=== PATIENT | female | born 1980 | race African-American/Black ===

== ENCOUNTER 2016-12-18 11:19 | Emergency (ER) | payer MEDICARE, MEDICAID ==
[2016-12-18] MEDS ORDERED: OXYCODONE-ACETAMINOPHEN 5-325 MG TABLET PO ONE ×2 (11:34→14:06)
--- NOTE | 2016-12-18 11:35 | ER Document Report ---
ED Medical Screen (RME) - General Chief Complaint: Vaginal Bleeding Stated Complaint: VAGINAL PAIN AND BLEEDING Notes: 36-year-old female patient complains of heavy vaginal bleeding started yesterday with severe cramps. She did not have a period for about 4 months. She was seen by [facility] and had endometrial biopsies done at the end of October, was put on Provera. She only took the Provera for 2 days, then had a period that lasted about 1-1/2 weeks. The bleeding began again yesterday. I have greeted and performed a rapid initial assessment of this patient. A comprehensive ED assessment and evaluation of the patient, analysis of test results and completion of the medical decision making process will be conducted by additional ED providers. TRAVEL OUTSIDE OF THE [place] IN LAST 30 DAYS: No - Related Data Allergies/Adverse Reactions: cefazolin [From Anc] Allergy (Verified 12/18/16 11:22) NSAIDS (Non-Steroidal Anti-Inflamma Allergy (Verified 12/18/16 11:22) Past Medical History Neurological Medical History: Reports: Hx Seizures Renal/ Medical History: Denies: Hx Peritoneal Dialysis Malignancy Medical History: Reports: Hx Cervical Cancer Musculoskeltal Medical History: Reports Hx Fibromyalgia Psychiatric Medical History: Reports: Hx Post Traumatic Stress Disorder Past Surgical History: Reports: Hx Appendectomy, Hx Gastric Bypass Surgery, Hx Herniorrhaphy, Hx Tonsillectomy, Hx Tubal Ligation - Immunizations Hx Diphtheria, Pertussis, Tetanus Vaccination: Yes Physical Exam - Vital signs Vitals: Temp Pulse Resp BP Pulse Ox 98.5 F 73 18 118/88 H 99 12/18/16 11:12/18/16 11:12/18/16 11:12/18/16 11:23 12/18/16 11:23 Course - Vital Signs Vital signs: Temp Pulse Resp BP Pulse Ox 98.5 F 73 18 118/88 H 99 12/18/16 11:23 12/18/16 11:23 12/18/16 11:12/18/16 11:23 12/18/16 11:23
[2016-12-18 11:54] LABS: ABSOLUTE BASOPHILS # (AUTO) 0.1 10^3/uL (0.0-0.2); ABSOLUTE EOSINOPHILS # (AUTO) 0.1 10^3/uL (0.0-0.6); ABSOLUTE LYMPHOCYTES (AUTO) 2.1 10^3/uL (0.5-4.7); ABSOLUTE MONOCYTES (AUTO) 0.9 10^3/uL (0.1-1.4); ABSOLUTE NEUT (AUTO) 6.7 10^3/uL (1.7-8.2); BASOPHILS % (AUTO) 0.6 % (0-2); EOSINOPHILS % (AUTO) 1.5 % (0-6); HEMATOCRIT 37.3 % (36.0-47.0); HEMOGLOBIN 12.5 g/dL (12.0-15.5); HGB HCT DIFFERENCE 0.2; LYMPHOCYTES % (AUTO) 20.9 % (13-45); MEAN CORPUSCULAR HEMOGLOBIN 27.8 pg (27.0-33.4); MEAN CORPUSCULAR HGB CONC 33.5 g/dL (32.0-36.0); MEAN CORPUSCULAR VOLUME 83 fl (80-97); MONOCYTES % (AUTO) 8.8 % (3-13); RED CELL DISTRIBUTION WIDTH 16.4 % (11.5-14.0); SEGMENTED NEUTROPHILS % (AUTO) 68.2 % (42-78); WHITE BLOOD COUNT 9.9 10^3/uL (4.0-10.5)
[2016-12-18 12:20] LABS: ALANINE AMINOTRANSFERASE 24 U/L (9-52); ALBUMIN 4.2 g/dL (3.5-5.0); ALKALINE PHOSPHATASE 98 U/L (38-126); ANION GAP 13 (5-19); ASPARTATE AMINO TRANSFERASE 14 U/L (14-36); BILIRUBIN,DIRECT 0.3 mg/dL (0.0-0.4); BILIRUBIN,TOTAL 0.5 mg/dL (0.2-1.3); BLOOD UREA NITROGEN 7 mg/dL (7-20); CALCIUM 9.3 mg/dL (8.4-10.2); CARBON DIOXIDE 23 mmol/L (22-30); CHLORIDE 108 mmol/L (98-107); CREATININE RESULT 0.69 mg/dL (0.52-1.25); GLUCOSE 93 mg/dL (75-110); POTASSIUM 4.5 mmol/L (3.6-5.0); SODIUM 143.6 mmol/L (137-145); TOTAL PROTEIN 7.6 g/dL (6.3-8.2)
--- NOTE | 2016-12-18 12:45 | ER Document Report ---
ED General - General Chief Complaint: Vaginal Bleeding Stated Complaint: VAGINAL PAIN AND BLEEDING Mode of Arrival: Ambulatory Information source: Patient Notes: 36 yr old female presents with complaints of pelvic pain with vaginal bleeding . Patient initially was being seen by Dr. Nathan because she did not have a menses between June to October, a colposcopy biopsy and ultrasound were performed, patient began having vaginal bleeding shortly thereafter in October. And then her period began again since yesterday heavy with cramping TRAVEL OUTSIDE OF THE [place] IN LAST 30 DAYS: No - HPI Onset: Yesterday Onset/Duration: Sudden Quality of pain: Cramping Severity: Moderate Pain Level: 1 Associated symptoms: Other Exacerbated by: Denies Relieved by: Denies Similar symptoms previously: Yes Recently seen / treated by doctor: Yes - Related Data Allergies/Adverse Reactions: cefazolin [From Anc] Allergy (Verified 12/18/16 11:22) NSAIDS (Non-Steroidal Anti-Inflamma Allergy (Verified 12/18/16 11:22) Past Medical History - Social History Smoking Status: Current Every Day Smoker Cigarette use (# per day): Yes Chew tobacco use (# tins/day): No Smoking Education Provided: No Frequency of alcohol use: None Drug Abuse: None Family History: Reviewed & Not Pertinent Patient has suicidal ideation: No Patient has homicidal ideation: No Neurological Medical History: Reports: Hx Seizures Renal/ Medical History: Denies: Hx Peritoneal Dialysis Malignancy Medical History: Reports: Hx Cervical Cancer Musculoskeltal Medical History: Reports Hx Fibromyalgia Psychiatric Medical History: Reports: Hx Post Traumatic Stress Disorder Past Surgical History: Reports: Hx Appendectomy, Hx Gastric Bypass Surgery, Hx Herniorrhaphy, Hx Tonsillectomy, Hx Tubal Ligation - Immunizations Hx Diphtheria, Pertussis, Tetanus Vaccination: Yes Review of Systems - Review of Systems Notes: REVIEW OF SYSTEMS: CONSTITUTIONAL : Denies fever, chills, or sweats. Denies recent illness. EENT: Denies eye, ear, throat, or mouth pain or symptoms. Denies nasal or sinus congestion or discharge. Denies throat, tongue, or mouth swelling or difficulty swallowing. CARDIOVASCULAR: Denies chest pain. Denies palpitations or racing or irregular heart beat. Denies ankle edema. RESPIRATORY: Denies cough, cold, or chest congestion. Denies shortness of breath, difficulty breathing, or wheezing. GASTROINTESTINAL: Denies abdominal pain or distention. Denies nausea, vomiting , or diarrhea. Denies blood in vomitus, stools, or per rectum. Denies black, tarry stools. Denies constipation. GENITOURINARY: Denies difficulty urinating, painful urination, burning, frequency, blood in urine, or discharge. FEMALE GENITOURINARY: Admits to vaginal bleeding pelvic cramping MUSCULOSKELETAL: Denies back or neck pain or stiffness. Denies joint pain or swelling. SKIN: Denies rash, lesions or sores. HEMATOLOGIC : Denies easy bruising or bleeding. LYMPHATIC: Denies swollen, enlarged glands. NEUROLOGICAL: Denies confusion or altered mental status. Denies passing out or loss of consciousness. Denies dizziness or lightheadedness. Denies headache. Denies weakness or paralysis or loss of use of either side. Denies problems with gait or speech. Denies sensory loss, numbness, or tingling. Denies seizures. PSYCHIATRIC: Denies anxiety or stress. Denies depression, suicidal ideation, or homicidal ideation. ALL OTHER SYSTEMS REVIEWED AND NEGATIVE. Dictation was performed using [employer] voice recognition software PHYSICAL EXAMINATION: GENERAL: Well-appearing, well-nourished and in no acute distress. HEAD: Atraumatic, normocephalic. EYES: Pupils equal round and reactive to light, extraocular movements intact, conjunctiva are normal. ENT: Nares patent, oropharynx clear without exudates. Moist mucous membranes. NECK: Normal range of motion, supple without lymphadenopathy LUNGS: Breath sounds clear to auscultation bilaterally and equal. No wheezes rales or rhonchi. HEART: Regular rate and rhythm without murmurs ABDOMEN: Soft, nontender, nondistended abdomen. No guarding, no rebound. No masses appreciated. Female : Pelvic examination performed with nurse in room, notes blood dried dark in vaginal vault no active bleeding Musculoskeletal: Normal range of motion, no pitting or edema. No cyanosis. NEUROLOGICAL: Cranial nerves grossly intact. Normal speech, normal gait. Normal sensory, motor exams PSYCH: Normal mood, normal affect. SKIN: Warm, Dry, normal turgor, no rashes or lesions noted. Physical Exam - Vital signs Vitals: Temp Pulse Resp BP Pulse Ox 98.5 F 73 18 118/88 H 99 12/18/16 11:23 12/18/16 11:23 12/18/16 11:23 12/18/16 11:23 12/18/16 11:23 Course - Re-evaluation Re-evalutation: 12/18/16 12:45 Ultrasound pending no life-threatening issues noted 12/18/16 15:03 Ultrasound is consistent with an ovarian cyst which patient is aware of, otherwise lab work notes no significant abnormality Patient to follow-up with her own [employer]ICER for further care 12/18/16 15:18 After performing a Medical Screening Examination, I estimate there is LOW risk for ACUTE APPENDICITIS, BOWEL OBSTRUCTION, ACUTE CHOLECYSTITIS, PERFORATED DIVERTICULITIS, INCARCERATED HERNIA, PANCREATITIS, PELVIC INFLAMMATORY DISEASE, PERFORATED ULCER, ECTOPIC , or TUBO-OVARIAN ABSCESS, thus I consider the discharge disposition reasonable. Also, there is no evidence or peritonitis , sepsis, or toxicity. I have reevaluated this patient multiple times and no significant life threatening changes are noted. The patient and I have discussed the diagnosis and risks, and we agree with discharging home with close follow-up with the understanding that symptoms and presentations can change. We also discussed returning to the Emergency Department immediately if new or worsening symptoms occur. We have discussed the symptoms which are most concerning (e.g., bloody stool, fever, changing or worsening pain, vomiting) that necessitate immediate return. - Vital Signs Vital signs: Temp Pulse Resp BP Pulse Ox 98.5 F 73 18 118/88 H 99 12/18/16 11:23 12/18/16 11:23 12/18/16 11:23 12/18/16 11:23 12/18/16 11:23 - Laboratory Result Diagrams: 12/18/16 11:41 12/18/16 11:41 Laboratory results interpreted by me: 12/18/16 12/18/16 11:41 11:41 RDW 16.4 H Chloride 108 H - Diagnostic Test Radiology reviewed: Image reviewed, Reports reviewed - Cyst noted report given to patient Discharge - Discharge Clinical Impression: Painful menstrual flow Ovarian cyst Qualifiers: Laterality: left Qualified Code(s): N83.202 - Unspecified ovarian cyst, left side Condition: Stable Disposition: HOME, SELF-CARE Instructions: Dysmenorrhea ([facility]) Prescriptions: Oxycodone HCl/Acetaminophen [Percocet 5-325 mg Tablet] 1 - 2 tab PO Q4H PRN #15 tablet PRN Reason: Referrals: DOROTHY ROGERS PA-C [Primary Care Provider] - Follow up as needed CULLEN NATHAN MD [ACTIVE STAFF] - Follow up as needed
[2016-12-18 15:40] VITALS: BP 104/58
== END 2016-12-18 15:38 | disposition home or self-care (01) ==
LOC: ER 11:19
DX: N83.202 Unspecified ovarian cyst, left side (principal); N93.8 Other specified abnormal uterine and vaginal bleeding; F17.210 Nicotine dependence, cigarettes, uncomplicated; F43.10 Post-traumatic stress disorder, unspecified; Z98.84 Bariatric surgery status
CPT/HCPCS: 99284; 36415; 84703; 85025; 80053; 76830; 93976; A9270

== ENCOUNTER 2017-01-05 17:38 | Emergency (ER) | payer MEDICARE, MEDICAID ==
[2017-01-05] MEDS ORDERED: LEVETIRACETAM 500 MG/NACL-ISO 100 ML IV ONE (17:54)
--- NOTE | 2017-01-05 17:57 | ER Document Report ---
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 EMS reports that the patient was post-ictal when they arrived. Patient had two additional 30 second Grand Mal seizures with post-ictal symptoms (no incontinence) each time. Patient was tachycardic with each episode and would return to a normal rate following the seizure. EMS reports that it took approximately 2 minutes of the patient to become alert after having each seizure. Patient had a third seizure in route to the ED where the patient's jaw clenched, eyes rolled back, became unresponsive, and her oxygen saturation dropped to the 80s. EMS gave the patient 2 mg Valium and 5 mg Versed. Patient was seen in the ED in March and May 2016 for seizure activity. Patient has a history of being non-compliant with seizure medication (Keppra and Gabapentin) . Patient has also stated in the past that she is concerned that her medication is not being absorbed as efficiently secondary to her gastric bypass surgery. When the patient became more alert she states that she hasn't taken her medication for 'a couple days'. Patient takes 1500 mg Keppra BID and an unknown dose of Gabapentin QID. A comprehensive HPI is unobtainable secondary to the patient's status. (JAKE ALLEN) - Related Data Allergies/Adverse Reactions: cefazolin [From Anc] Allergy (Verified 12/18/16 11:22) NSAIDS (Non-Steroidal Anti-Inflamma Allergy (Verified 12/18/16 11:22) Past Medical History - General Information source: [facility] Records - Social History Smoking Status: Unknown if Ever Smoked Family History: Reviewed & Not Pertinent Neurological Medical History: Reports: Hx Seizures Malignancy Medical History: Reports: Hx Cervical Cancer Musculoskeltal Medical History: Reports Hx Fibromyalgia Psychiatric Medical History: Reports: Hx Post Traumatic Stress Disorder Past Surgical History: Reports: Hx Appendectomy, Hx Gastric Bypass Surgery, Hx Herniorrhaphy, Hx Tonsillectomy, Hx Tubal Ligation - Immunizations Hx Diphtheria, Pertussis, Tetanus Vaccination: Yes <ALLENJAKE - Last Filed: 01/05/17 18:52> Review of Systems - Review of Systems -: Yes ROS unobtainable due to patient's medical condition - A comprehensive ROS is unobtainable secondary to the patient's status. Neurological/Psychological: Seizure <ALLENJAKE - Last Filed: 01/05/17 18:52> Physical Exam - General General appearance: Other - Patient was initially post-ictal and lethargic, but is alert and crying now. In distress: None - HEENT Head: Normocephalic, Atraumatic Eyes: Normal Extraocular movements intact: Yes Pupils: PERRL - pupils are not dilated Mucous membranes: Dry - Respiratory Respiratory status: No respiratory distress Breath sounds: Normal - Cardiovascular Rhythm: Regular Heart sounds: Normal auscultation - Abdominal Inspection: Morbidly Obese Distension: No distension Tenderness: Nontender - Back Back: Normal - Extremities General upper extremity: Normal inspection, Normal ROM General lower extremity: Normal inspection, Normal ROM - Neurological Neuro grossly intact: Yes Additional motor exam normals: Other - Patient is not hyperreflexive. - Psychological Associated symptoms: Normal affect, Normal mood - Skin Skin Temperature: Warm Skin Moisture: Dry Skin Color: Normal <JAKE ALLEN - Last Filed: 01/05/17 18:52> Course - Laboratory Result Diagrams: 01/05/17 18:00 01/05/17 18:00 <ALLENJAKE - Last Filed: 01/05/17 18:52> - Laboratory Result Diagrams: 01/05/17 18:00 01/05/17 18:00 - Diagnostic Test Radiology reviewed: Image reviewed, Reports reviewed - Chest x-ray does not show an acute process. There is some prominence in the right hilum. - EKG Interpretation by Ri EKG shows normal: Sinus rhythm, Joaquin, Intervals, ST-T Waves. abnormal: QRS Complexes - Borderline Q waves in inferior leads Rate: Normal - 88 Rhythm: NSR P Waves: LAE <EMELIA MOLINA - Last Filed: 01/05/17 19:43> - Re-evaluation Re-evalutation: 01/05/17 18:31 The patient did wake up, a admitted to not taking her seizure medication for several days. She states she is moving and could not find the medicine. Her other visits for seizures here were also from not taking her medication. She is now emotionally sobbing and crying and complaining of back pain. 01/05/17 19:39 The patient states that she now knows where her medications are. They're in a brown bag. She reports she actually located them earlier today but was waiting until she got back to her house to take them. She again states that she does know where the medication is, that she will be able to get it and take it when she gets home this evening. (EMELIA MOLINA) - Laboratory Laboratory results interpreted by me: 01/05/17 18:00 WBC 11.4 H RDW 16.0 H Absolute Neutrophils 8.3 H Discharge <JAKE ALLEN - Last Filed: 01/05/17 18:52> <EMELIA MOLINA - Last Filed: 01/05/17 19:43> - Discharge Clinical Impression: Seizures, Noncompliance with medications Condition: Stable Disposition: HOME, SELF-CARE Additional Instructions: Seizure, Known Epileptic: You have had a seizure. Seizures may "break through" in an epileptic due to stress of infection or injury, a change in blood chemistry, or drug and alcohol use. Another common cause is failure to take medication as prescribed. Your doctor has evaluated your situation for the likely cause of this seizure. It is important that you follow his advice concerning any medication changes and follow-up care. Further testing of anti-seizure medication levels in your blood may be necessary. If you have a delivery driver/customer service's license, it's important that you DO NOT DRIVE until given permission by your physician. This seizure must be reported to the delivery driver/customer service 's license bureau. Call the doctor or return if seizures recur, or if new or unusual symptoms arise -- such as severe headache, confusion, excessive sleepiness, local weakness or numbness, neck stiffness, or fever. TAKE YOUR MEDICATION WHEN YOU RETURN HOME. DO NOT SKIP DOSES OF YOUR MEDICATIONS AGAIN. FOLLOW UP WITH DR. HERNANDEZ. RETURN TO THE EMERGENCY ROOM IF ANY NEW OR WORSENING SYMPTOMS. Referrals: DOROTHY ROGERS PA-C [Primary Care Provider] - Follow up as needed MICHEL HERNANDEZ MD [ACTIVE STAFF] - Follow up as needed Scribe Attestation: 01/05/17 19:42 I personally performed the services described in the documentation, reviewed and edited the documentation which was dictated to the scribe in my presence, and it accurately records my words and actions. (MEELIA MOLINA) Scribe Documentation - Scribe Written by Scribe:: Reema White, 01/05/2017 1803 acting as scribe for :: Sailaja <JAKE ALLEN - Last Filed: 01/05/17 18:52>
[2017-01-05 18:12] LABS: ABSOLUTE BASOPHILS # (AUTO) 0.1 10^3/uL (0.0-0.2); ABSOLUTE EOSINOPHILS # (AUTO) 0.1 10^3/uL (0.0-0.6); ABSOLUTE LYMPHOCYTES (AUTO) 2.2 10^3/uL (0.5-4.7); ABSOLUTE MONOCYTES (AUTO) 0.9 10^3/uL (0.1-1.4); ABSOLUTE NEUT (AUTO) 8.3 10^3/uL (1.7-8.2); BASOPHILS % (AUTO) 0.5 % (0-2); EOSINOPHILS % (AUTO) 0.7 % (0-6); HEMATOCRIT 37.5 % (36.0-47.0); HEMOGLOBIN 12.1 g/dL (12.0-15.5); HGB HCT DIFFERENCE -1.2; LYMPHOCYTES % (AUTO) 18.9 % (13-45); MEAN CORPUSCULAR HEMOGLOBIN 27.2 pg (27.0-33.4); MEAN CORPUSCULAR HGB CONC 32.4 g/dL (32.0-36.0); MEAN CORPUSCULAR VOLUME 84 fl (80-97); MONOCYTES % (AUTO) 7.5 % (3-13); RED BLOOD COUNT 4.47 10^6/uL (3.72-5.28); SEGMENTED NEUTROPHILS % (AUTO) 72.4 % (42-78); WHITE BLOOD COUNT 11.4 10^3/uL (4.0-10.5)
[2017-01-05] MEDS ORDERED: ETOMIDATE INJ/PF 20 MG/10 ML SDV IV ONE (18:25)
[2017-01-05 18:30] LABS: ALANINE AMINOTRANSFERASE 22 U/L (9-52); ALBUMIN 4.2 g/dL (3.5-5.0); ALKALINE PHOSPHATASE 88 U/L (38-126); ANION GAP 12 (5-19); ASPARTATE AMINO TRANSFERASE 17 U/L (14-36); BILIRUBIN,DIRECT 0.4 mg/dL (0.0-0.4); BILIRUBIN,TOTAL 0.4 mg/dL (0.2-1.3); BLOOD UREA NITROGEN 8 mg/dL (7-20); CALCIUM 9.6 mg/dL (8.4-10.2); CARBON DIOXIDE 22 mmol/L (22-30); CHLORIDE 106 mmol/L (98-107); CREATININE RESULT 0.81 mg/dL (0.52-1.25); GLUCOSE 89 mg/dL (75-110); POTASSIUM 4.4 mmol/L (3.6-5.0); SODIUM 140.3 mmol/L (137-145); TOTAL PROTEIN 7.7 g/dL (6.3-8.2)
[2017-01-05] MEDS ORDERED: GABAPENTIN 300 MG CAPSULE PO ONE (18:32)
[2017-01-05] MEDS ORDERED: OXYCODONE-ACETAMINOPHEN 5-325 MG TABLET PO ONE (18:33)
[2017-01-05 18:44] LABS: ADD ON TESTING BLD IN LAB ACKNOWLEDGE
[2017-01-05 19:11] LABS: CREATINE KINASE 118 U/L (30-135)
[2017-01-05 20:48] VITALS: BP 102/69
== END 2017-01-05 19:55 | disposition home or self-care (01) ==
LOC: ER 17:38
DX: G40.909 Epilepsy, unspecified, not intractable, without status epilepticus (principal); Z91.14 Patient's other noncompliance with medication regimen; Z85.41 Personal history of malignant neoplasm of cervix uteri; Z98.84 Bariatric surgery status; Z98.51 Tubal ligation status
CPT/HCPCS: 99284; 51702; 36415; 82550; 85025; 80053; 71010; A9270 ×2

== ENCOUNTER 2017-05-11 07:50 | Emergency (ER) | payer MEDICARE, MEDICAID ==
[2017-05-11] MEDS ORDERED: LIDOCAINE 1% INJ-PF (10 MG/ML) 30 ML SDV INJ ONE (08:09)
[2017-05-11] MEDS ORDERED: HYDROCODONE/ACETAMINOPHEN 10-325 MG TABLET PO ONE (08:10)
[2017-05-11] MEDS ORDERED: DIPH/PERTUSS(ACELL)/TETANUS VAC/PF 0.5 ML SYR (>=10YO) IM ONE (08:10)
--- NOTE | 2017-05-11 08:16 | ER Document Report ---
ED Extremity Problem, Lower <TEAGAN CERRATO - Last Filed: 05/11/17 09:47> - General TRAVEL OUTSIDE OF THE [place] IN LAST 30 DAYS: No <AMANDAKISHORE BEVERLY - Last Filed: 05/11/17 10:58> - General Chief Complaint: Ankle Injury Stated Complaint: RIGHT ANKLE PAIN Time Seen by Provider: 05/11/17 08:09 - HPI Notes: This is a 36-year-old female who presents with multiple injuries after sustaining a fall shortly prior to arrival in her kitchen. The area of significant pain appears to be her right ankle. She states it is severe and worse with movement. She also has a laceration to the inside and outside of her lower lip region. She denies any other significant injury otherwise. Specifically no chest pain abdominal pain. Though she does have a seizure history, no seizure was noted. This was based on a simple mechanical fall as she slipped. She does state she has some mild generalized pain that is more consistent with her fibromyalgia. Tetanus shot is not up-to-date in the last 5 years. Denies any head injury loss of consciousness new neck or back discomfort or pelvic pain. (KISHORE PATEL) - Related Data Allergies/Adverse Reactions: cefazolin [From Anc] Allergy (Verified 05/11/17 07:59) NSAIDS (Non-Steroidal Anti-Inflamma Allergy (Verified 05/11/17 07:59) Past Medical History - Social History Smoking Status: Current Every Day Smoker Frequency of alcohol use: None Drug Abuse: Prescription drugs Family History: Reviewed & Not Pertinent Neurological Medical History: Reports: Hx Seizures Renal/ Medical History: Denies: Hx Peritoneal Dialysis Malignancy Medical History: Reports: Hx Cervical Cancer Musculoskeltal Medical History: Reports Hx Fibromyalgia Psychiatric Medical History: Reports: Hx Post Traumatic Stress Disorder Past Surgical History: Reports: Hx Appendectomy, Hx Gastric Bypass Surgery, Hx Herniorrhaphy, Hx Tonsillectomy, Hx Tubal Ligation - Immunizations Hx Diphtheria, Pertussis, Tetanus Vaccination: Yes <KISHORE PATEL - Last Filed: 05/11/17 10:58> Review of Systems - Review of Systems -: Yes All other systems reviewed and negative <KISHORE PATEL - Last Filed: 05/11/17 10:58> Physical Exam <TEAGAN CERRATO - Last Filed: 05/11/17 09:47> <KISHORE PATEL - Last Filed: 05/11/17 10:58> - Vital signs Vitals: Temp Pulse Resp BP Pulse Ox 98.5 F 98 18 125/102 H 95 05/11/17 07:56 05/11/17 07:56 05/11/17 07:56 05/11/17 07:56 05/11/17 07:56 - Notes Notes: GENERAL: VS as per nursing doc. Well-appearing, well-nourished and in no acute distress. C-Collar in place. Spine board in place. HEAD: Atraumatic, normocephalic. No cranial tenderness EYES: Pupils equal round and reactive to light, extraocular movements intact, sclera anicteric, no conjunctival injection or discharge. No evidence of trauma. ENT: Nares patent without bleeding. There is a stellate laceration to the mucosal surface of the lower lip. It does not involve the lip itself and is totally mucosal based. It is difficult to note if this is clearly through and through as there is a 2 cm laceration on the external surface of the lower lip though it does not cross the vermilion border or the lip itself. No evidence of facial instablitily. The mandible itself does not appear to be tender and I note no instability. No evidence of newly fractured or loose teeth. NECK: Normal range of motion without pain elicited. No deformity. LUNGS: Breath sounds clear to auscultation bilaterally and equal. No wheezes rales or rhonchi. No chest wall tenderness or deformity. HEART: Regular rate and rhythm without murmurs. Normal S1, S2. Peripheral pulses equal. ABDOMEN: Soft, non-tender. BACK: No CVA tenderness. No spine tenderness. No evidence of trauma EXTREMITIES: Normal range of motion without pain elicited except for the right ankle. There is moderate amount of edema with tenderness diffusely more so over the lateral malleolus. Basically anywhere from the proximal tib-fib region distally to the toes she has exquisite tenderness. Ankle is the only area that appears to have gross deformity. Neurovascularly intact distally. NEUROLOGICAL: GCS 15. Cranial nerves intact. Normal speech. Normal sensory and motor exams. No gross cerebellar abnormalities. PSYCH: Normal mood, normal affect. SKIN: Warm, dry. Lacerations as noted above, there are contusions that are scattered mostly noted of the right upper extremity. There is no associated bony tenderness. (AMANDAKISHORE) Course <TEAGAN CERRATO - Last Filed: 05/11/17 09:47> - Diagnostic Test Radiology reviewed: Image reviewed, Reports reviewed - Patient has suggestions of an unstable ankle with some mild mortise widening as well as a transverse fracture of the distal fibula. <AMANDA,JOHN F - Last Filed: 05/11/17 10:58> - Re-evaluation Re-evalutation: 05/11/17 09:[address] Ray. Patient will be placed in a posterior and stirrup splint. She will remain nonweightbearing and call to arrange follow-up for probable surgical repair. 05/11/17 10:12 The posterior and stirrup splint OCL was fabricated by BRUNO Cerna. Follow-up showed good neurovascular status and good placement. Patient was again instructed on splint use and mandatory follow-up. 05/11/17 10:57 Patient told me on initial evaluation when directly asked if she was on any pain medications she stated no. She later informed the nurse that she was in through a pain clinic. I reviewed her record in the [facility] medical database. She is receiving 90 Percocet a day. She was very upset I would not prescribe her further narcotics specifically [place], and instructed her she would need further pain management through her pain management clinic. She cannot take NSAIDs. I do not feel there are much other options. (AMANDAKISHORE) - Vital Signs Vital signs: Temp Pulse Resp BP Pulse Ox 98.9 F 92 16 128/86 H 96 05/11/17 10:41 05/11/17 10:41 05/11/17 10:41 05/11/17 10:41 05/11/17 10:41 Procedures - Laceration/Wound Repair Face Time completed: 09:47 Wound length (cm): 1 Wound's Depth, Shape: Irregular - through to buccal mucosa of the lower lip Laceration pre-procedure: Sterile drapes applied, Other - surgiscrub Anesthetic type: 1% Lidocaine Volume Anesthetic (mLs): 4 Wound explored: Clean Irrigated w/ Saline (mLs): 80 - no lower teeth (dentures) no upper teeth chips Wound Repaired With: Sutures - #3 chromic buccal mucosa loosely approximated, # 3 5-0 prolene external distal to lower lip Suture Size/Type: 5:0, Prolene, Other - chromic Number of Sutures: 6 - see above Layer Closure?: No Post-procedure NV exam normal: Yes Complications: No <TEAGAN CERRATO - Last Filed: 05/11/17 09:47> Discharge <SAQIBTEAGAN - Last Filed: 05/11/17 09:47> <KISHORE PATEL - Last Filed: 05/11/17 10:58> - Discharge Clinical Impression: Laceration of face, Closed right ankle fracture Condition: Good Disposition: HOME, SELF-CARE Instructions: Ankle Stirrup Splint ([facility]), Use of Crutches ([facility]), Ice & Elevation ([facility]), Oral Narcotic Medication ([facility]), Tetanus Immunization Given ([facility] ) Additional Instructions: It is extremely important to ice and elevate your ankle to decrease the swelling. Do not let your foot dangle or your ankle will become increasingly painful and more swollen. Keep it above heart level. Use crutches or a walker to remain nonweightbearing on the right ankle. Use caution with the pain medication as it will make you sleepy. Do not take extra Tylenol. Contact Dr. Ray today to arrange follow-up for this week. His number is a attached as noted. Rinse your mouth with warm salt water rinses to try to keep the area clean of the inside laceration. Avoid nuts or similar particles that could get imbedded. Note that there will be some white material forming on the inside of the mouth. Take the antibiotics as directed. The outside sutures will need to be removed in approximately 5 days. The inside sutures will dissolve on their own. Because you are followed by pain management, you will have to have them provide your care and pain managemen in excess of your already prescribed Oxcodone. Make sure you contact them today. Prescriptions: Promethazine HCl [Phenergan 25 mg Tablet] 1 tab PO Q4HP PRN #15 tablet PRN Reason: Amoxicillin 1 tab PO TID #15 tab Referrals: TAL HERNANDEZ MD [ACTIVE STAFF] - Follow up as needed (It is very important to call today to arrange follow-up for this week.)
--- NOTE | 2017-05-11 09:02 | RADIOLOGY REPORT (SQ) ---
EXAM DESCRIPTION: FOOT RIGHT COMPLETE COMPLETED DATE/TIME: 05/11/2017 8:45 am REASON FOR STUDY: Trauma with pain COMPARISON: Right tibia and fibula two views NUMBER OF VIEWS: Two-views. TECHNIQUE: AP, lateral radiographic images acquired of the right foot. LIMITATIONS: None. FINDINGS: MINERALIZATION: Normal. BONES: Acute fracture, right distal fibular metaphysis at the level of the ankle mortise. This is ma rked with an arrow. Bones of the right foot are intact. JOINTS: Ankle joint effusions. SOFT TISSUES: Lateral soft tissue swelling. No foreign body. OTHER: No other significant finding. IMPRESSION: Transverse fracture right distal fibular metaphysis with overlying soft tissue swelling TECHNICAL DOCUMENTATION: JOB ID: [id number] [employer]- All Rights Reserved
--- NOTE | 2017-05-11 09:04 | RADIOLOGY REPORT (SQ) ---
EXAM DESCRIPTION: TIBIA FIBULA RIGHT COMPLETED DATE/TIME: 05/11/2017 8:45 am REASON FOR STUDY: Trauma with pain COMPARISON: Right foot two views NUMBER OF VIEWS: Two views. TECHNIQUE: Two radiographic images acquired of the right tibia and fibula to include the knee and an kle in at least one projection. LIMITATIONS: None. FINDINGS: MINERALIZATION: Normal. BONES: Acute transverse fracture right distal fibular metaphysis with slight lateral displacement of the fracture fragment. SOFT TISSUES: Lateral soft tissue swelling OTHER: There is an ankle joint effusion, slight lateral subluxation of the talus with respect to the tibia, and mild widening of the medial ankle mortise. IMPRESSION: Limited study of the ankle. However, there is a transverse fracture of the distal right fibular metaphysis at the level of the ankle mortise, and widening of the medial ankle mortise. Ank le joint effusion is present. Remainder of the tibia and fibula two views is otherwise unremarkable TECHNICAL DOCUMENTATION: JOB ID: [id number] [employer]- All Rights Reserved
[2017-05-11] MEDS ORDERED: OXYCODONE-ACETAMINOPHEN 5-325 MG TABLET PO ONE (10:12)
[2017-05-11 10:44] VITALS: BP 128/86
== END 2017-05-11 10:45 | disposition home or self-care (01) ==
LOC: ER 07:50
PROC: 0CQ1XZZ Repair Lower Lip, External Approach (ICD-10-PCS; principal; 2017-05-11)
DX: S82.401A Unspecified fracture of shaft of right fibula, initial encounter for closed fracture (principal); S01.511A Laceration without foreign body of lip, initial encounter; W01.0XXA Fall on same level from slipping, tripping and stumbling without subsequent striking against object, initial encounter; Y92.000 Kitchen of unspecified non-institutional (private) residence as the place of occurrence of the external cause; F17.200 Nicotine dependence, unspecified, uncomplicated; F43.10 Post-traumatic stress disorder, unspecified; Z85.41 Personal history of malignant neoplasm of cervix uteri; Z98.84 Bariatric surgery status; Z98.51 Tubal ligation status; Z23 Encounter for immunization
CPT/HCPCS: 99283; 90471; 73630; 73590; 90715; 12011; J3490; A9270 ×2

== ENCOUNTER 2017-05-19 09:15 | Day surgery (SDC) | payer MEDICARE, MEDICAID ==
[2017-05-18 10:51] LABS: ABSOLUTE BASOPHILS # (AUTO) 0.1 10^3/uL (0.0-0.2); ABSOLUTE EOSINOPHILS # (AUTO) 0.2 10^3/uL (0.0-0.6); ABSOLUTE LYMPHOCYTES (AUTO) 1.8 10^3/uL (0.5-4.7); ABSOLUTE MONOCYTES (AUTO) 0.9 10^3/uL (0.1-1.4); ABSOLUTE NEUT (AUTO) 9.1 10^3/uL (1.7-8.2); EOSINOPHILS % (AUTO) 1.8 % (0-6); HEMATOCRIT 36.2 % (36.0-47.0); HGB HCT DIFFERENCE -0.2; LYMPHOCYTES % (AUTO) 14.9 % (13-45); MEAN CORPUSCULAR HEMOGLOBIN 27.5 pg (27.0-33.4); MEAN CORPUSCULAR VOLUME 83 fl (80-97); MONOCYTES % (AUTO) 7.1 % (3-13); RED BLOOD COUNT 4.35 10^6/uL (3.72-5.28); RED CELL DISTRIBUTION WIDTH 14.9 % (11.5-14.0); SEGMENTED NEUTROPHILS % (AUTO) 75.2 % (42-78); WHITE BLOOD COUNT 12.1 10^3/uL (4.0-10.5)
[2017-05-18 11:08] LABS: ANION GAP 11 (5-19); BLOOD UREA NITROGEN 10 mg/dL (7-20); CALCIUM 9.2 mg/dL (8.4-10.2); CARBON DIOXIDE 22 mmol/L (22-30); CHLORIDE 107 mmol/L (98-107); CREATININE RESULT 0.63 mg/dL (0.52-1.25); GLUCOSE 93 mg/dL (75-110); POTASSIUM 4.9 mmol/L (3.6-5.0); SODIUM 140.2 mmol/L (137-145)
--- NOTE | 2017-05-18 12:06 | RADIOLOGY REPORT (SQ) ---
EXAM DESCRIPTION: CHEST PA/LATERAL COMPLETED DATE/TIME: 05/18/2017 11:32 am REASON FOR STUDY: PRE OP COMPARISON: 01/05/2017. EXAM PARAMETERS: NUMBER OF VIEWS: two views TECHNIQUE: Digital Frontal and Lateral radiographic views of the chest acquired. RADIATION DOSE: NA LIMITATIONS: none FINDINGS: LUNGS AND PLEURA: No opacities, masses or pneumothorax. No pleural effusion. MEDIASTINUM AND HILAR STRUCTURES: No masses or contour abnormalities. HEART AND VASCULAR STRUCTURES: Heart normal size. No evidence for failure. BONES: No acute findings. HARDWARE: None in the chest. OTHER: No other significant finding. IMPRESSION: NO SIGNIFICANT RADIOGRAPHIC FINDING IN THE CHEST. TECHNICAL DOCUMENTATION: JOB ID: [id number] [employer]- All Rights Reserved
--- NOTE | 2017-05-18 12:53 | EKG REPORT ---
SEVERITY:- NORMAL ECG - SINUS RHYTHM : Confirmed by: Rogers Aceves MD 18-May-2017 12:52:15
[~2017-05-19 09:15] MED LIST: LACTATED RINGERS 1000 ML IV PRN; LIDOCAINE 0.5% INJ-PF (5 MG/ML) 50 ML SDV SUBCUT PRN; SUCCINYLCHOLINE CHLORIDE INJ 200 MG/10 ML VIAL ONE; VANCOMYCIN HCL 1,500 MG in DEXTROSE 5%-WATER 250 ML IV PRN
[2017-05-19 10:03] LABS: APPEARANCE,URINE CLEAR; BILIRUBIN,URINE NEGATIVE (NEGATIVE); GLUCOSE, URINE NEGATIVE (NEGATIVE); KETONES,URINE NEGATIVE (NEGATIVE); LEUKOCYTE ESTERASE,URINE SMALL (NEGATIVE); NITRITE,URINE NEGATIVE (NEGATIVE); PROTEIN,URINE NEGATIVE (NEGATIVE); URINE SPECIFIC GRAVITY 1.015; UROBILINOGEN,URINE NEGATIVE mg/dL (<2.0)
[2017-05-19] MEDS ORDERED: HYDROMORPHONE HCL INJ/PF 2 MG/ML AMPULE ONE (10:27)
[2017-05-19] MEDS ORDERED: FENTANYL CITRATE INJ/PF 100 MCG/2 ML AMPUL ONE (11:07)
[2017-05-19] MEDS ORDERED: ACETAMINOPHEN 100 ML IV ONE (11:07)
[2017-05-19] MEDS ORDERED: PROPOFOL INJ 200 MG/20 ML VIAL IV ONE (11:07)
[2017-05-19] MEDS ORDERED: ONDANSETRON HCL INJ/PF 4 MG/2 ML SDV ONE (11:07)
[2017-05-19] MEDS ORDERED: DEXAMETHASONE SOD PHOSPHATE INJ 4 MG/1 ML VIAL ONE (11:07)
[2017-05-19] MEDS ORDERED: MIDAZOLAM 2 MG/2 ML INJ ONE (11:07)
[2017-05-19] MEDS ORDERED: MORPHINE SULFATE 10 MG/ML INJ ONE (11:07)
[2017-05-19] MEDS ORDERED: BUPIVACAINE HCL 0.25 % INJ/PF (2.5 MG/1 ML) 30 ML VIAL ONE (12:23)
[2017-05-19] MEDS ORDERED: MEPERIDINE HCL/PF INJ 25 MG/1 ML DISP.SYRIN IV PRN (12:25)
[2017-05-19] MEDS ORDERED: FENTANYL CITRATE INJ/PF 100 MCG/2 ML AMPUL IV PRN ×3 (12:25)
[2017-05-19] MEDS ORDERED: MORPHINE SULFATE 10 MG/ML INJ IV PRN (12:25)
[2017-05-19] MEDS ORDERED: PROMETHAZINE HCL INJ 25 MG/1 ML VIAL IV PRN ×2 (12:25)
[2017-05-19] MEDS ORDERED: OXYCODONE-ACETAMINOPHEN 5-325 MG TABLET PO PRN ×2 (12:25)
[2017-05-19] MEDS ORDERED: DIPHENHYDRAMINE HCL 50 MG/ML VIAL IV PRN (12:25)
--- NOTE | 2017-05-19 13:22 | Operative Report ---
Operative Report DATE OF SURGERY: 05/19/17 PREOPERATIVE DIAGNOSIS: Displaced right lateral malleolus ankle fracture POSTOPERATIVE DIAGNOSIS: Same OPERATION: ORIF of right lateral malleolus ankle fracture SURGEON: TAL BECKER ANESTHESIA: GA TISSUE REMOVED OR ALTERED: None COMPLICATIONS: None ESTIMATED BLOOD LOSS: 30 mL INTRAOPERATIVE FINDINGS: As above PROCEDURE: Patient received 2 g of Ancef in the preoperative holding area. Patient was now taken to the operating room and induced and intubated in supine position. Once the tube was secured a thigh tourniquet was applied to right extremity. Extremity was prepped and draped in a normal surgical fashion. Timeout was done identifying the right ankle as the correct site. Attempted to inflate the tourniquet and was unsuccessful due to mechanical problems with the actual tourniquet therefore no tourniquet was used. Electrocautery was used to obtain hemostasis. A standard lateral incision was done straight over the distal fibula. Incision was taken down to the bone and then periosteal elevator was used to expose the fracture site and elevate the periosteum at the fracture site. Both fragments were visualized and Jah Contreras was used to retract the tissue. I was able to then reduce the fracture with reduction clamps. C-arm pictures were taken to confirm our reduction. I then applied the appropriate locking plate and make sure was in a proper alignment and with C-arm. Once I was satisfied with the proximal distal situation and the AP lateral position of the plate I proceeded then to use the drill guide and drill to drill the proximal hole in the plate in the distal fragment. I measured and placed a proper length screw. I repeated this with the distal hole in the plate to secure the proximal fragment. Reduction clamp was removed and the fracture stayed reduced. AP and lateral x-rays confirm there is no change in alignment. I then proceeded to fill in the remaining holes I drilling and using C-arm and measuring guide to applied appropriate screws. Once I was satisfied with my lateral fixation at this point I proceeded to close my lateral wound with 0 Vicryl and 3-0 Vicryl and claudette for skin. Tourniquet was let down and the dressing was applied. Xeroform 4 x 4 sterile dressing followed by Sof-Rol was applied. A posterior Ortho-Glass splint with a Ortho-Glass stirrup splint was applied and overwrapped with an Clemente bandage. I held the foot in neutral and waiting until the splint hardened. At this point drapes were removed and patient was extubated and sent to PACU in stable condition.
[2017-05-19] MEDS: MORPHINE SULFATE 10 MG/ML INJ ONE ×4 (13:26→13:39)
[2017-05-19] MEDS ORDERED: HYDROCODONE/ACETAMINOPHEN 5-325 MG TABLET PO PRN (13:26)
--- NOTE | 2017-05-19 13:26 | PDOC DISCHARGE SUMMARY ---
Discharge Summary (SDC) - Discharge Final Diagnosis: ORIF of right lateral malleolus Date of Surgery: 05/19/17 Discharge Date: 05/19/17 Condition: Good Treatment or Instructions: Keep splint dry clean and intact. Nonweightbearing with crutches. Follow-up in the office in 10-14 days. Prescriptions: Hydrocodone/Acetaminophen [[place] 5-325 mg Tablet] 1 - 2 tab PO Q6HP PRN #60 tablet PRN Reason: Referrals: DOROTHY ROGERS PA-C [Primary Care Provider] - Respiratory Treatments at Home: Deep Breathing/Coughing Discharge Activity: Keep Legs Elevated, No Lifting/Push/Pulling Home Care Assistance: None Needed Adaptive Devices on Discharge: Axillary Crutches Report the Following to Your Physician Immediately: Shortness of Breath, Vomiting, Fever over 101 Degrees, Unusual Bleeding, Redness, Swelling, Warmth, Increased Soreness, Drainage-Yellow, Drainage-Cannon, Drainage-Green, Drainage- Foul Smelling
--- NOTE | 2017-05-19 13:35 | RADIOLOGY REPORT (SQ) ---
EXAM DESCRIPTION: ANKLE RIGHT AP/LATERAL COMPLETED DATE/TIME: 05/19/2017 1:06 pm REASON FOR STUDY: ORIF RIGHT LATERAL MALLEOLUS FX ASSISTED W/ FLUORO IN OR S82.61XA DISP FX OF LATE RAL MALLEOLUS OF RIGHT FIBULA, INIT COMPARISON: None. FLUOROSCOPY TIME: 0.3 minute 6 images saved to PACS. TECHNIQUE: Intra-operative images acquired during surgical procedure to evaluate progress. NUMBER OF IMAGES: 6 LIMITATIONS: None. FINDINGS: Fluoroscopic images were obtained during internal fixation of the right fibula. Orthopedi c hardware is identified. Please refer to the surgeon's operative report for additional information. IMPRESSION: IMAGE(S) OBTAINED DURING PROCEDURE. COMMENT: Quality ID [id number]: Final reports for procedures using fluoroscopy that document radiation exp osure indices, or exposure time and number of fluorographic images (if radiation exposure indices are not available) Please consult full operative report of the attending physician for description of the procedure. TECHNICAL DOCUMENTATION: JOB ID: [id number] [employer]- All Rights Reserved
--- NOTE | 2017-05-19 14:42 | RADIOLOGY REPORT (SQ) ---
EXAM DESCRIPTION: NO CHG FLUORO COMPLETED DATE/TIME: 05/19/2017 1:06 pm REASON FOR STUDY: ORIF RIGHT LATERAL MALLEOLUS FX ASSISTED W/ FLUORO IN OR COMPARISON: Right tibia and fibula films 05/11/2017 Intraoperative imaging 05/19/2017 FLUOROSCOPY TIME: 0.3 minutes 6 Images saved to PACS LIMITATIONS: None. PROCEDURE: Intra procedural imaging and fluoro during ORIF right ankle FINDINGS: Intraoperative films. IMPRESSION: Intraoperative films and fluoroscopy COMMENT: PQRS [id number]: Fluoroscopy time of the procedure is documented in the report. TECHNICAL DOCUMENTATION: JOB ID: [id number] [employer]- All Rights Reserved
[2017-05-19 15:45] VITALS: BP 122/86
== END 2017-05-19 15:30 | disposition home or self-care (01) ==
LOC: OROUT 09:15
PROVIDERS: ATTEND Orthopaedic Surgery
PROC: 0QSJ04Z Reposition Right Fibula with Internal Fixation Device, Open Approach (ICD-10-PCS; principal; 2017-05-19 11:30)
DX: S82.61XA Displaced fracture of lateral malleolus of right fibula, initial encounter for closed fracture (principal); W01.0XXA Fall on same level from slipping, tripping and stumbling without subsequent striking against object, initial encounter; K21.9 Gastro-esophageal reflux disease without esophagitis; F17.210 Nicotine dependence, cigarettes, uncomplicated; M25.571 Pain in right ankle and joints of right foot; M79.7 Fibromyalgia; G40.909 Epilepsy, unspecified, not intractable, without status epilepticus; F31.9 Bipolar disorder, unspecified; E66.9 Obesity, unspecified; Z79.899 Other long term (current) drug therapy; Z79.51 Long term (current) use of inhaled steroids; Z98.84 Bariatric surgery status; Z68.43 Body mass index [BMI] 50.0-59.9, adult
CPT/HCPCS: 93005; 36415; 85025; 81025; 80048; 81001; 73600; 71020; 93010; 27792; C1713 ×5; J2250; J1100; J3010; J2270; J1170; J0330; J2405; J7060; J2704; J3370; J0131; A9270; 01480

== ENCOUNTER 2017-08-22 21:00 | Emergency (ER) | payer MEDICARE, MEDICAID ==
--- NOTE | 2017-08-22 22:14 | RADIOLOGY REPORT (SQ) ---
EXAM DESCRIPTION: ANKLE RIGHT COMPLETE COMPLETED DATE/TIME: 08/22/2017 9:56 pm REASON FOR STUDY: twisted ankle, hx of ankle fx in COMPARISON: 05/19/2017 and 05/11/2017. NUMBER OF VIEWS: Three views. TECHNIQUE: AP, lateral, and oblique radiographic images acquired of the right ankle. LIMITATIONS: None. FINDINGS: MINERALIZATION: Normal. BONES: Previous fracture of the distal fibula with stable hardware. Tiny osseous structure distal to the medial malleolus likely due to acute avulsion. JOINTS: No effusions. SOFT TISSUES: Medial soft tissue swelling. No foreign body. OTHER: No other significant finding. IMPRESSION: PROBABLE ACUTE AVULSION INJURY OF THE DISTAL END OF THE MEDIAL MALLEOLUS. PREVIOUS FRAC TURE OF THE FIBULA WITH HARDWARE IN PLACE. TECHNICAL DOCUMENTATION: JOB ID: [id number] [employer]- All Rights Reserved
--- NOTE | 2017-08-22 22:51 | ER Document Report ---
ED Extremity Problem, Lower - General Chief Complaint: Ankle Injury Stated Complaint: RIGHT ANKLE INJURY Time Seen by Provider: 08/22/17 22:49 Mode of Arrival: Wheelchair Information source: Parent Notes: 36-year-old female presents to ED for complaint of pain and swelling in her right ankle. She states she was getting out of the shower and stepped on a toy baseball bat slipped and fell. She broke her ankle in April and had surgery. She came into the ER with a walking boot on her ankle. She states she has crutches in the car. TRAVEL OUTSIDE OF THE [place] IN LAST 30 DAYS: No - HPI Patient complains to provider of: Injury, Pain, Swelling Location: Ankle Occurred: This evening Where: Home, Indoors Onset/Duration: Sudden Quality of pain: Sharp, Throbbing Severity: Moderate Pain Level: 4 Context: Barefoot, Twisted Recent injury: Yes Associated symptoms: Painful ambulation Exacerbated by: Movement, Walking Relieved by: Nothing - Related Data Allergies/Adverse Reactions: cefazolin [From Anc] Allergy (Verified 05/18/17 09:30) throat swelling NSAIDS (Non-Steroidal Anti-Inflamma Allergy (Verified 05/18/17 09:30) Past Medical History - General Information source: Patient - Social History Smoking Status: Current Every Day Smoker Cigarette use (# per day): Yes Smoking Education Provided: Yes - Less than 3 minutes Frequency of alcohol use: None Drug Abuse: None Lives with: Alone Family History: Reviewed & Not Pertinent Patient has suicidal ideation: No Patient has homicidal ideation: No - Past Medical History Cardiac Medical History: Reports: None Pulmonary Medical History: Reports: None EENT Medical History: Reports: None Neurological Medical History: Reports: Hx Seizures - january 13 Endocrine Medical History: Reports: None Renal/ Medical History: Reports: None Malignancy Medical History: Reports: Hx Cervical Cancer GI Medical History: Reports: None Musculoskeltal Medical History: Reports Hx Fibromyalgia, Reports Hx Musculoskeletal Trauma Skin Medical History: Reports None Psychiatric Medical History: Reports: Hx Post Traumatic Stress Disorder Traumatic Medical History: Reports: Hx Fractures - right ankle Infectious Medical History: Reports: None Past Surgical History: Reports: Hx Appendectomy, Hx Gastric Bypass Surgery, Hx Herniorrhaphy, Hx Orthopedic Surgery - right ankle fracture, Hx Tonsillectomy, Hx Tubal Ligation - Immunizations Hx Diphtheria, Pertussis, Tetanus Vaccination: Yes - 05/16 Review of Systems - Review of Systems Constitutional: No symptoms reported EENT: No symptoms reported Cardiovascular: No symptoms reported Respiratory: No symptoms reported Gastrointestinal: No symptoms reported Genitourinary: No symptoms reported Female Genitourinary: No symptoms reported Musculoskeletal: Joint pain - right ankle, Ankle swelling Skin: Change in color - eccymosis Hematologic/Lymphatic: No symptoms reported Neurological/Psychological: No symptoms reported -: Yes All other systems reviewed and negative Physical Exam - Vital signs Vitals: Temp Pulse Resp BP Pulse Ox 98.5 F 80 18 121/73 100 08/22/17 21:43 08/22/17 21:43 08/22/17 21:43 08/22/17 21:43 08/22/17 21:43 Interpretation: Normal - General General appearance: Appears well, Alert - HEENT Head: Normocephalic, Atraumatic Eyes: Normal Pupils: PERRL - Respiratory Respiratory status: No respiratory distress Chest status: Nontender Breath sounds: Normal Chest palpation: Normal - Cardiovascular Rhythm: Regular Heart sounds: Normal auscultation Murmur: No - Abdominal Inspection: Normal Distension: No distension Bowel sounds: Normal Tenderness: Nontender Organomegaly: No organomegaly - Back Back: Normal, Nontender - Extremities General upper extremity: Normal inspection, Nontender, Normal color, Normal ROM , Normal temperature General lower extremity: Normal temperature. No: Dennis's sign Ankle: Tender, Ecchymosis, Edema, Limited ROM. No: Abrasion, Deformity, Instability, Laceration, Unable to bear weight Foot: Tender, Edema - Neurological Neuro grossly intact: Yes Cognition: Normal Orientation: AAOx4 [place] Coma Scale Eye Opening: Spontaneous [place] Coma Scale Verbal: Oriented Stefany Coma Scale Motor: Obeys Commands Stefany Coma Scale Total: 15 Speech: Normal Motor strength normal: LUE, RUE, LLE, RLE Sensory: Normal - Psychological Associated symptoms: Normal affect, Normal mood - Skin Skin Temperature: Warm Skin Moisture: Dry Skin Color: Normal, Ecchymosis Location of irregularity: Extremities - right ankle Irregularity with: Swelling, Tenderness Course - Re-evaluation Re-evalutation: 08/22/17 23:34 X-ray discussed with patient and written report given to patient. Patient has a possible new avulsion fracture to the right ankle. Clemente wrap was applied to the ankle tonight and then her boot applied over top of the Clemente wrap. She was also given a Mathews dispense pack for her pain. Patient was instructed to elevate and ice the ankle and to follow-up with Dr. Ray via telephone on Wednesday. - Vital Signs Vital signs: Temp Pulse Resp BP Pulse Ox 98.6 F 72 18 121/74 94 08/23/17 00:00 08/23/17 00:00 08/23/17 00:00 08/23/17 00:00 08/23/17 00:00 - Diagnostic Test Radiology reviewed: Image reviewed, Reports reviewed Procedures - Immobilization Right Ankle Time completed: 23:35 Pre-Proc Neuro Vasc Exam: Normal Immobilizer type: Clemente wrap Performed by: PCT Post-Proc Neuro Vasc Exam: Normal Alignment checked and good: Yes Discharge - Discharge Clinical Impression: Avulsion fracture of ankle Qualifiers: Encounter type: initial encounter Fracture type: closed Laterality: right Qualified Code(s): S82.891A - Other fracture of right lower leg, initial encounter for closed fracture Condition: Stable Disposition: HOME, SELF-CARE Additional Instructions: Avulsion Fracture of the Ankle There is a small chip fracture in your ankle. This fracture was caused by stretching the joint ligaments, which pulled off a small piece of bone. This injury is treated much the same as a severe sprain. At first, you should elevate, rest, and apply ice packs to the leg. Often , only an ankle brace or tape is necessary while the chip fracture heals. Sometimes a chip fracture of this type requires a cast or walking boot. The treatment plan may change, depending on how your ankle progresses. Chip fractures usually do not fuse back onto the bone, but rather scar down to the bone surface. You will most likely see this bone fragment on future x-rays. It's important that you follow the treatment program as outlined for now, then follow up for re-evaluation as scheduled. Call the doctor or return at once if pain or swelling becomes severe, or if you develop other unusual symptoms. CLEMENTE WRAP: A compression dressing (clemente wrap) has been placed. This helps hold the area still. It limits swelling and internal bleeding. The wrap should be comfortably snug -- not tight. You should feel a sense of pressure, but not severe pain under the wrap. Unless the physician tells you otherwise, you can adjust the wrap for comfort. If the wrap causes symptoms suggesting it's too tight -- uncomfortable pressure, swelling or discoloration beyond the wrap, numbness, or severe pain - - you must loosen the wrap. If these symptoms don't resolve promptly, return for re-evaluation. Please wear your ankle boot over top of the Clemente wrap and keep your foot elevated. Use ice as instructed below ICE & ELEVATION: Apply ice packs frequently against the painful area. Many different schedules are recommended, such as "20 minutes on, 20 minutes off" or "one hour ice, two hours rest." If you need to work, you may need to go longer between ice treatments. You should plan to have the area ice packed AT LEAST one- fourth of the time. The ice should be applied over the wrap, tape, or splint, or over a layer of cloth -- not directly against the skin. Some ice bags have a built-in cloth and can be put directly on the skin. Your injured part should be elevated as much as possible over the next 48 hours. Try to keep the injury above the level of the heart. Avoid use of the injured area. Elevation and rest will decrease the swelling. ORAL NARCOTIC MEDICATION: You have been given a [employer] dispense pack for pain control. This medication is a narcotic. It's best taken with food, as nausea can result if taken on an empty stomach. Don't operate machinery or drive within six hours of taking this medication. Do not combine this medicine with alcohol, or with any medication which can cause sedation (such as cold tablets or sleeping pills) unless you get permission from the physician. Narcotics tend to cause constipation. If possible, drink plenty of fluids and eat a diet high in fiber and fruits. Please be aware that prescription narcotics also have the potential for abuse. People become addicted to these medications because of the general sense of wellbeing that they induce. This feeling along with a significant reduction in tension, anxiety, and aggression provides a stimulating seductive quality to these drugs. Once your pain is under control, we encourage you to discard your unused narcotics. FOLLOW-UP CARE: If you have been referred to a physician for follow-up care, call the physician s office for an appointment as you were instructed or within the next two days. If you experience worsening or a significant change in your symptoms, notify the physician immediately or return to the Emergency Department at any time for re-evaluation. Referrals: DOROTHY ROGERS PA-C [Primary Care Provider] - Follow up as needed TAL HERNANDEZ MD [ACTIVE STAFF] - 08/24/17
[2017-08-22] MEDS ORDERED: HYDROCODONE/ACETAMINOPHEN 5-325 MG 6 TAB/DSPK PO PRN (23:28)
[2017-08-23 00:01] VITALS: BP 121/74
== END 2017-08-23 | disposition home or self-care (01) ==
LOC: ER 21:00
DX: S82.891A Other fracture of right lower leg, initial encounter for closed fracture (principal); M25.571 Pain in right ankle and joints of right foot; M79.89 Other specified soft tissue disorders; W01.0XXA Fall on same level from slipping, tripping and stumbling without subsequent striking against object, initial encounter; F17.210 Nicotine dependence, cigarettes, uncomplicated
CPT/HCPCS: 99283; 73610; A9270

== ENCOUNTER 2017-12-11 23:01 | Emergency (ER) | payer MEDICARE, OTHER, MEDICAID ==
--- NOTE | 2017-12-12 00:25 | RADIOLOGY REPORT (SQ) ---
EXAM DESCRIPTION: ANKLE RIGHT COMPLETE CLINICAL HISTORY: 37 years, Female, Pain s/p injury COMPARISON: None. NUMBER OF VIEWS: 3 FINDINGS: Osteotomy plate and screw fixation near-anatomic alignment of the distal right fibula: There is little or no significant bone fusion demonstrated at a distal fibular diametaphyseal fracture/osteotomy site.0.3 cm avulsive fragmentation of the medial malleolus of indeterminate age. Moderate diffuse ankle swelling. IMPRESSION: ORIF of the distal right fibula. Small avulsive injury of the right medial malleolus of indeterminate age.
[2017-12-12 00:34] VITALS: BP 139/88
--- NOTE | 2017-12-12 00:38 | ER Document Report ---
HPI - HPI Patient complains to provider of: Right ankle injury Onset: Just prior to arrival Onset/Duration: Sudden Quality of pain: Throbbing Severity: Severe Pain Level: 5 Context: Patient states she fell twisting her right ankle this evening. Does have a history of previous surgery on the ankle in April 2017. Has follow-up appointment with orthopedic surgeon next month. Patient is currently on a bone stimulator for the ankle Associated Symptoms: None Exacerbated by: Movement, Walking Relieved by: Denies Similar symptoms previously: Yes Recently seen / treated by doctor: No - ROS ROS below otherwise negative: Yes Systems Reviewed and Negative: Yes All other systems reviewed and negative - CONSTITUTIONAL Constitutional: DENIES: Fever - CARDIOVASCULAR Cardiovascular: DENIES: Chest pain - RESPIRATORY Respiratory: DENIES: Trouble Breathing - MUSCULOSKELETAL Musculoskeletal: REPORTS: Extremity pain - Right ankle, Swelling Past Medical History - General Information source: Patient - Social History Smoking Status: Current Every Day Smoker Cigarette use (# per day): Yes Frequency of alcohol use: None Drug Abuse: None Lives with: Spouse/Significant other Family History: Reviewed & Not Pertinent Neurological Medical History: Reports: Hx Seizures - january 13 Malignancy Medical History: Reports: Hx Cervical Cancer Musculoskeltal Medical History: Reports Hx Fibromyalgia, Reports Hx Musculoskeletal Trauma Psychiatric Medical History: Reports: Hx Bipolar Disorder, Hx Post Traumatic Stress Disorder Traumatic Medical History: Reports: Hx Fractures - right ankle Past Surgical History: Reports: Hx Appendectomy, Hx Gastric Bypass Surgery, Hx Herniorrhaphy, Hx Orthopedic Surgery - right ankle fracture, Hx Tonsillectomy, Hx Tubal Ligation - Immunizations Hx Diphtheria, Pertussis, Tetanus Vaccination: Yes - 05/16 Vertical Provider Document - CONSTITUTIONAL Agree With Documented VS: Yes Exam Limitations: No Limitations General Appearance: WD/WN, No Apparent Distress - INFECTION CONTROL TRAVEL OUTSIDE OF THE [place] IN LAST 30 DAYS: No - HEENT HEENT: Normocephalic - RESPIRATORY Respiratory: Breath Sounds Normal, No Respiratory Distress - CARDIOVASCULAR Cardiovascular: Regular Rate, Regular Rhythm - MUSCULOSKELETAL/EXTREMETIES Musculoskeletal/Extremeties: Tender - Right lateral ankle. Neurovascular and sensation is intact to right foot, Edema - NEURO Level of Consciousness: Awake, Alert, Appropriate - DERM Integumentary: Warm, Dry Course - Re-evaluation Re-evalutation: 12/12/17 01:15 X-ray showed small avulsive injury of the right medial malleolus of age indeterminate. This was discussed with the patient - Vital Signs Vital signs: Temp Pulse Resp BP Pulse Ox 97.9 F 74 139/88 H 97 12/12/17 00:32 12/12/17 00:32 12/12/17 00:32 12/12/17 00:32 Procedures - Immobilization Right Ankle Pre-Proc Neuro Vasc Exam: Normal Immobilizer type: Ankle stirrup Performed by: PCT Post-Proc Neuro Vasc Exam: Normal Alignment checked and good: Yes Discharge - Discharge Clinical Impression: Right ankle sprain Qualifiers: Encounter type: initial encounter Involved ligament of ankle: unspecified ligament Qualified Code(s): S93.401A - Sprain of unspecified ligament of right ankle, initial encounter Condition: Good Disposition: ADMITTED INPATIENT Instructions: Oral Narcotic Medication ([facility]), Ice & Elevation ([facility]), Ice Packs ([facility]), Ankle Stirrup Splint ([facility]) Additional Instructions: Tylenol as needed for pain, Hepler for breakthrough pain Ice and elevate the foot Call your orthopedic surgeon Wednesday morning for earlier follow-up, let him know you were seen in the emergency room for injury Return as needed
[2017-12-12] MEDS ORDERED: HYDROCODONE/ACETAMINOPHEN 5-325 MG (6 TAB/ER DISP) PO PRN (01:16)
== END 2017-12-12 01:25 | disposition other institution (70) ==
LOC: ER 23:01
DX: S93.401A Sprain of unspecified ligament of right ankle, initial encounter (principal); W19.XXXA Unspecified fall, initial encounter; F17.210 Nicotine dependence, cigarettes, uncomplicated; Z98.84 Bariatric surgery status; Z98.51 Tubal ligation status
CPT/HCPCS: 99283; 73610; L1902; A9270

== ENCOUNTER 2018-01-13 12:05 | Day surgery (SDC) | payer MEDICARE, MEDICAID ==
--- NOTE | 2018-01-10 12:04 | RADIOLOGY REPORT (SQ) ---
EXAM DESCRIPTION: CHEST PA/LATERAL COMPLETED DATE/TIME: 01/10/2018 11:49 am REASON FOR STUDY: PRE OP COMPARISON: Chest films 05/18/2017, 01/05/2017 EXAM PARAMETERS: NUMBER OF VIEWS: two views TECHNIQUE: Digital Frontal and Lateral radiographic views of the chest acquired. RADIATION DOSE: NA LIMITATIONS: none FINDINGS: LUNGS AND PLEURA: No opacities, masses or pneumothorax. No pleural effusion. MEDIASTINUM AND HILAR STRUCTURES: No masses or contour abnormalities. HEART AND VASCULAR STRUCTURES: Heart normal size. No evidence for failure. BONES: No acute findings. HARDWARE: Clips in the upper abdomen OTHER: No other significant finding. IMPRESSION: NO SIGNIFICANT RADIOGRAPHIC FINDING IN THE CHEST. TECHNICAL DOCUMENTATION: JOB ID: [id number] [employer]- All Rights Reserved Reading location - IP/workstation name: [email or web address]
[2018-01-10 12:23] LABS: ABSOLUTE BASOPHILS # (AUTO) 0.1 10^3/uL (0.0-0.2); ABSOLUTE EOSINOPHILS # (AUTO) 0.1 10^3/uL (0.0-0.6); ABSOLUTE MONOCYTES (AUTO) 0.5 10^3/uL (0.1-1.4); ABSOLUTE NEUT (AUTO) 5.8 10^3/uL (1.7-8.2); BASOPHILS % (AUTO) 0.8 % (0-2); EOSINOPHILS % (AUTO) 1.5 % (0-6); HEMOGLOBIN 12.6 g/dL (12.0-15.5); LYMPHOCYTES % (AUTO) 23.2 % (13-45); MEAN CORPUSCULAR HEMOGLOBIN 26.5 pg (27.0-33.4); MEAN CORPUSCULAR HGB CONC 33.3 g/dL (32.0-36.0); MEAN CORPUSCULAR VOLUME 80 fl (80-97); MONOCYTES % (AUTO) 6.4 % (3-13); PLATELET COUNT 422 10^3/uL (150-450); RED BLOOD COUNT 4.78 10^6/uL (3.72-5.28); RED CELL DISTRIBUTION WIDTH 17.7 % (11.5-14.0); SEGMENTED NEUTROPHILS % (AUTO) 68.1 % (42-78); TOTAL CELLS COUNTED % (AUTO) 100 %; WHITE BLOOD COUNT 8.5 10^3/uL (4.0-10.5)
[2018-01-10 12:35] LABS: APPEARANCE,URINE SLIGHTLY-CLOUDY; BILIRUBIN,URINE NEGATIVE (NEGATIVE); COLOR,URINE YELLOW; GLUCOSE, URINE NEGATIVE (NEGATIVE); KETONES,URINE TRACE mg/dL (NEGATIVE); LEUKOCYTE ESTERASE,URINE SMALL (NEGATIVE); NITRITE,URINE NEGATIVE (NEGATIVE); PROTEIN,URINE NEGATIVE (NEGATIVE); URIC ACID CRYSTALS,URINE MODERATE /HPF; URINE SPECIFIC GRAVITY 1.024; UROBILINOGEN,URINE NEGATIVE mg/dL (<2.0)
[2018-01-10 12:54] LABS: ANION GAP 11 (5-19); BLOOD UREA NITROGEN 6 mg/dL (7-20); CARBON DIOXIDE 25 mmol/L (22-30); CHLORIDE 108 mmol/L (98-107); GLUCOSE 91 mg/dL (75-110); POTASSIUM 4.5 mmol/L (3.6-5.0); SODIUM 144.2 mmol/L (137-145)
--- NOTE | 2018-01-10 20:15 | EKG REPORT ---
SEVERITY:- NORMAL ECG - SINUS RHYTHM : Confirmed by: Marilu Alvarado 10-Jan-2018 20:14:49
[~2018-01-13 12:05] MED LIST changes: +CLINDAMYCIN 600 MG/D5W RTU 600 MG/50 ML RTUPB IV PRN; -VANCOMYCIN HCL 1,500 MG in DEXTROSE 5%-WATER 250 ML IV PRN
[2018-01-13] MEDS ORDERED: MIDAZOLAM 2 MG/2 ML INJ ONE ×2 (14:01→15:51)
[2018-01-13] MEDS: FENTANYL CITRATE INJ/PF 100 MCG/2 ML AMPUL ONE ×4 (14:07→19:00)
[2018-01-13] MEDS ORDERED: BUPIVACAINE HCL 0.25 % INJ/PF (2.5 MG/1 ML) 30 ML VIAL ONE (14:48)
[2018-01-13] MEDS ORDERED: HYDROMORPHONE HCL INJ/PF 2 MG/ML AMPULE ONE (15:51)
[2018-01-13] MEDS ORDERED: FENTANYL CITRATE INJ/PF 100 MCG/2 ML AMPUL ONE (15:51)
[2018-01-13] MEDS ORDERED: DEXAMETHASONE SOD PHOSPHATE INJ 4 MG/1 ML VIAL ONE (15:51)
[2018-01-13] MEDS ORDERED: ONDANSETRON HCL INJ/PF 4 MG/2 ML SDV ONE (15:51)
[2018-01-13] MEDS ORDERED: ACETAMINOPHEN 100 ML IV ONE (15:52)
[2018-01-13] MEDS ORDERED: PROPOFOL INJ 200 MG/20 ML VIAL IV ONE (15:52)
[2018-01-13] MEDS ORDERED: MORPHINE SULFATE 10 MG/ML INJ IV PRN (16:37)
[2018-01-13] MEDS ORDERED: FENTANYL CITRATE INJ/PF 100 MCG/2 ML AMPUL IV PRN ×3 (16:37)
[2018-01-13] MEDS ORDERED: DIPHENHYDRAMINE HCL 50 MG/ML VIAL IV PRN (16:37)
[2018-01-13] MEDS ORDERED: PROMETHAZINE HCL INJ 25 MG/1 ML VIAL IV PRN (16:37)
[2018-01-13] MEDS ORDERED: MEPERIDINE HCL/PF INJ 25 MG/1 ML DISP.SYRIN IV PRN (16:37)
--- NOTE | 2018-01-13 18:01 | RADIOLOGY REPORT (SQ) ---
EXAM DESCRIPTION: NO CHG FLUORO; ANKLE RIGHT AP/LATERAL COMPLETED DATE/TIME: 01/13/2018 5:47 pm REASON FOR STUDY: ORIF RIGHT ANKLE COMPARISON: 12/11/2017 FLUOROSCOPY TIME: 0.2 minutes 4 Images saved to PACS LIMITATIONS: None. PROCEDURE: Revision of ORIF of the right fibula. FINDINGS: Images obtained with fluoro document placement of a longer compression plate on the distal fibula secured by 6 screws. IMPRESSION: ORIF right fibula. Refer to operative note for further information. COMMENT: PQRS 6045F: Fluoroscopy time of the procedure is documented in the report. TECHNICAL DOCUMENTATION: JOB ID: [id number] [employer]- All Rights Reserved Reading location - IP/workstation name: [email or web address]
--- NOTE | 2018-01-13 18:01 | RADIOLOGY REPORT (SQ) ---
EXAM DESCRIPTION: NO CHG FLUORO; ANKLE RIGHT AP/LATERAL COMPLETED DATE/TIME: 01/13/2018 5:47 pm REASON FOR STUDY: ORIF RIGHT ANKLE COMPARISON: 12/11/2017 FLUOROSCOPY TIME: 0.2 minutes 4 Images saved to PACS LIMITATIONS: None. PROCEDURE: Revision of ORIF of the right fibula. FINDINGS: Images obtained with fluoro document placement of a longer compression plate on the distal fibula secured by 6 screws. IMPRESSION: ORIF right fibula. Refer to operative note for further information. COMMENT: PQRS 6045F: Fluoroscopy time of the procedure is documented in the report. TECHNICAL DOCUMENTATION: JOB ID: [id number] [employer]- All Rights Reserved Reading location - IP/workstation name: [email or web address]
[2018-01-13] MEDS: MIDAZOLAM 2 MG/2 ML INJ ONE ×2 (18:20→18:30)
[2018-01-13] MEDS: MORPHINE SULFATE 10 MG/ML INJ ONE ×2 (18:25→18:35)
--- NOTE | 2018-01-13 18:32 | Discharge Summary ---
Discharge Summary (SDC) - Discharge Final Diagnosis: The osteosynthesis of the right lateral malleolus Date of Surgery: 01/13/18 Discharge Date: 01/13/18 Condition: Good Treatment or Instructions: Keep the cast dry clean and intact. Nonweightbearing of the right lower extremity with crutches. Follow-up in 10-14 days in the office. Prescriptions: Oxycodone HCl/Acetaminophen [Percocet 5-325 mg Tablet] 1 - 2 tab PO ASDIR PRN # 60 tablet PRN Reason: Referrals: DOROTHY ROGERS PA-C [Primary Care Provider] - Discharge Diet: As Tolerated Respiratory Treatments at Home: Deep Breathing/Coughing, Incentive Spirometer Discharge Activity: No Driving, No Lifting/Push/Pulling Home Care Assistance: None Needed Adaptive Devices on Discharge: Standard Walker Report the Following to Your Physician Immediately: Shortness of Breath, Vomiting, Increase in Pain, Fever over 101 Degrees, Unusual Bleeding, Redness, Swelling, Warmth, Increased Soreness, Drainage-Yellow, Drainage-Cannon, Drainage- Green, Drainage-Foul Smelling
[2018-01-13] MEDS ORDERED: OXYCODONE-ACETAMINOPHEN 5-325 MG TABLET PO PRN ×2 (19:26→21:55)
[2018-01-13] MEDS ORDERED: ONDANSETRON HCL INJ/PF 4 MG/2 ML SDV IV PRN (19:27)
[2018-01-13] MEDS: OXYCODONE-ACETAMINOPHEN 5-325 MG TABLET PO PRN (20:37)
[2018-01-13] MEDS ORDERED: TRAMADOL HCL 50 MG TABLET PO PRN (20:55)
[2018-01-13] MEDS ORDERED: (PENDING PHARMACY ID) (Oxycodone Hcl/Acetaminophen [Percocet 10-325 Mg Tablet] 1 TAB) PO PRN (20:55)
[2018-01-13] MEDS ORDERED: OXYCODONE HCL IR 5 MG TABLET PO PRN (21:56)
[2018-01-13] MEDS ORDERED: PERAMPANEL 4 MG PO SCH (22:00)
[2018-01-13] MEDS ORDERED: PREGABALIN 75 MG CAPSULE PO SCH ×2 (22:00)
[2018-01-13] MEDS: BACLOFEN 10 MG TABLET PO SCH (22:53)
[2018-01-13] MEDS: GABAPENTIN 300 MG CAPSULE PO SCH (23:17)
[2018-01-14] MEDS: MORPHINE SULFATE 10 MG/ML INJ IV PRN ×2 (00:48→03:04)
[2018-01-14] MEDS: BACLOFEN 10 MG TABLET PO SCH (05:13)
[2018-01-14] MEDS: GABAPENTIN 300 MG CAPSULE PO SCH (05:13)
[2018-01-14] MEDS: OXYCODONE-ACETAMINOPHEN 5-325 MG TABLET PO PRN (05:13)
[2018-01-14] MEDS ORDERED: LANSOPRAZOLE 30 MG TAB.RAP.DR PO SCH (06:00)
[2018-01-14 07:31] VITALS: BP 118/71
[2018-01-14] MEDS ORDERED: MULTIVITAMIN TABLET PO SCH (10:00)
[2018-01-16] MEDS ORDERED: ERGOCALCIFEROL (VITAMIN D2) 50000 UNIT (1.25 MG) CAPSULE PO SCH (10:00)
--- NOTE | 2018-02-13 19:14 | Operative Report ---
Operative Report DATE OF SURGERY: 01/13/18 PREOPERATIVE DIAGNOSIS: Nonunion right lateral malleolus POSTOPERATIVE DIAGNOSIS: Same OPERATION: Re-osteosynthesis of right lateral malleolus nonunion SURGEON: TAL BECKER ANESTHESIA: GA TISSUE REMOVED OR ALTERED: none COMPLICATIONS: None ESTIMATED BLOOD LOSS: Less than 20 mL INTRAOPERATIVE FINDINGS: As above PROCEDURE: Patient was brought to the operating room and induced and intubated in the supine position. The right lower extremity was prepped and draped in a normal sterile surgical fashion. Prior to prepping and draping a thigh tourniquet was applied to the right lower extremity. Esmarch was used to exsanguinate the extremity and the tourniquet was inflated at 325 mmHg. We first turned attention to Lainey's tubercle on the proximal tibia and did a inch incision using a 15 blade. Dissection was done through simultaneous tissue and expose the periosteum over the Lainey's tubercle. We then proceeded to just use a 2.0 drill to break the proximal cortex and then allowed us to put our curved curettes to excise the intramedullary bone graft. Once I was satisfied with harvesting bone graft I then used some bone wax to cover the hole and we did test the periosteum and closed subcutaneous tissue with 0 Vicryl and 2-0 Vicryl for skin and claudette for the skin. I turned my attention to the lateral malleolus where he went to the previous incision using a 15 blade. Quickly I dissected through the scar tissue and expose the lateral plate. I was successfully removed all the screws without any broken screws and remove the actual lateral plate. C-arm pictures were taken to confirm that all hardware was removed and to my attention to the reactive synthesis. I took down the fibrous nonunion of the lateral malleolus with a 15 blade and Bovie exposing both ends of the fracture and then used a drill to open the intramedullary canal of both fragments. I also used a curette to clean out the previous drill holes. I this point placed some bone graft inside of the fracture site and placed a one third tubular titanium locking plate and with the use of C-arm and location of previous drill placement screws distally approximately while holding and holding reduction with a lobster claw. My final pictures with C-arm show confirmation of the plate reduction of the fracture and the bone graft filling in the gap. Once I was satisfied and close my wound using 0 Vicryl 2-0 Vicryl and then claudette for skin. Xeroform 4 x 4 dressing was applied and overwrapped extremity with soft roll and Clemente bandage. Drapes were removed tourniquet was let down and the patient was taken to PACU in a stable condition.
== END 2018-01-14 07:45 | disposition home or self-care (01) ==
LOC: OROUT 12:05 → 2N 20:17 → OROUT 01-14 07:45
PROVIDERS: ATTEND Orthopaedic Surgery
DX: S82.61XK Displaced fracture of lateral malleolus of right fibula, subsequent encounter for closed fracture with nonunion (principal); W19.XXXD Unspecified fall, subsequent encounter; M25.571 Pain in right ankle and joints of right foot; G40.909 Epilepsy, unspecified, not intractable, without status epilepticus; M79.7 Fibromyalgia; J44.9 Chronic obstructive pulmonary disease, unspecified; K21.9 Gastro-esophageal reflux disease without esophagitis; F17.210 Nicotine dependence, cigarettes, uncomplicated; Z79.51 Long term (current) use of inhaled steroids; Z79.01 Long term (current) use of anticoagulants; Z88.6 Allergy status to analgesic agent; Z79.899 Other long term (current) drug therapy; Z79.891 Long term (current) use of opiate analgesic
CPT/HCPCS: 93005; 36415; 85025; 81025; 80048; 81001; 73600; 71046; 93010; 27792; C1713 ×4; J2250; A9270 ×9; J1100; J3010; J2270 ×2; J1170; J0330; J2405; J2704; J0131; 01480